=== PATIENT | male | born 2000 | race Hispanic/Latino ===

== ENCOUNTER 2018-03-31 13:39 | Emergency (ER) | payer BC ==
--- OUTSIDE RECORDS SUMMARY | 2018-03-31 13:42 | XMS REPORT ---
:2000 [facility] [address] [place] [address] [address]. [address] [place] [address] Care Team Providers Name Role Phone Unavailable Unavailable Unavailable Payers Payer Name Policy Type Policy Number Effective Date Expiration Date Problems This patient has no known problems. Allergies, Adverse Reactions, Alerts Allergy Allergy Status Severity Reaction(s) Onset Inactive Treating Comments Name Type Date Date Clinician No Known DA Active U 2018-01 Allergies -22 00:00:0 0 Medications This patient has no known medications.
[2018-03-31] MEDS ORDERED: ONDANSETRON 4 MG/2 ML VIAL ONE ×2 (14:10→14:29)
[2018-03-31] MEDS ORDERED: FENTANYL CITR 100 MCG/2 ML ONE (14:10)
[2018-03-31] MEDS ORDERED: MORPHINE 4 MG/ML SYR ONE (14:29)
[2018-03-31] MEDS ORDERED: KETOROLAC 30 MG/ML INJ ONE (15:47)
[2018-03-31] MEDS ORDERED: NA CHLORIDE 0.9% 1,000 ML ONE (15:47)
--- NOTE | 2018-03-31 15:49 | RAD REPORT ---
EXAM DESCRIPTION: Leonard David Left03/31/2018 2:45 pm CLINICAL HISTORY: Left leg pain status post injury FINDINGS: Mildly displaced spiral fracture mid to distal left tibia
--- NOTE | 2018-03-31 15:51 | RAD REPORT ---
EXAM DESCRIPTION: RAD - Foot Left 3 View - 03/31/2018 2:45 pm CLINICAL HISTORY: Left Foot pain FINDINGS: No fracture or dislocation is seen.
--- NOTE | 2018-03-31 16:21 | ER ---
Nurse's Notes [facility] Name: Anthony Guo Age: 17 yrs Sex: Male : 2000 Arrival Date: 03/31/2018 Time: 13:40 Bed 13 Private MD: Erickson Frankel B Diagnosis: Spiral fracture left mid to distal tibia Presentation: 03/31 13:53 Risk Assessment: Do you want to hurt yourself or someone else? Patient reports no tw2 desire to harm self or others. Initial Sepsis Screen: Does the patient meet any 2 criteria? No. Patient's initial sepsis screen is negative. Does the patient have a suspected source of infection? No. Patient's initial sepsis screen is negative. Care prior to arrival: None. 13:54 Presenting complaint: Patient states: was sliding into base while playing softball, iw felt and heard a pop in left ankle. Transition of care: patient was not received from another setting of care. Onset of symptoms was March 31, 2018. 13:54 Method Of Arrival: Wheelchair iw 13:54 Acuity: TOÑO 3 iw Historical: - Allergies: 13:55 NKA; iw - Home Meds: 13:55 None [Active]; iw - PMHx: 13:55 None; iw - PSHx: 13:55 None; iw - Immunization history:: Adult Immunizations. - Social history:: Smoking status: . - Ebola Screening: : Patient denies travel to an Ebola-affected area in the 21 days before illness onset. Screenin:52 Abuse screen: Denies threats or abuse. Nutritional screening: No deficits noted. tw2 Tuberculosis screening: No symptoms or risk factors identified. Fall Risk None identified. Assessment: 14:00 General: Appears in no apparent distress. uncomfortable, Behavior is calm, cooperative, jl7 appropriate for age. Pain: Complains of pain in left geronimo Pain does not radiate. Pain currently is 10 out of 10 on a pain scale. Pain began 30 min ago. Is continuous. Neuro: Level of Consciousness is awake, alert, obeys commands, Oriented to person, place, time, situation. Cardiovascular: Patient's skin is warm and dry. Respiratory: Airway is patent Respiratory effort is even, unlabored, Respiratory pattern is regular, symmetrical. Derm: Skin is pink, warm \T\ dry. Musculoskeletal: Bony deformity noted of left geronimo. 15:00 Reassessment: Patient appears in no apparent distress at this time. Patient and/or jl7 family updated on plan of care and expected duration. Pain level reassessed. Patient is alert, oriented x 3, equal unlabored respirations, skin warm/dry/pink. 16:00 Reassessment: Patient appears in no apparent distress at this time. No changes from jl7 previously documented assessment. Patient and/or family updated on plan of care and expected duration. Pain level reassessed. Patient is alert, oriented x 3, equal unlabored respirations, skin warm/dry/pink. Vital Signs: 13:55 BP 117 / 71; Pulse 82; Resp 16; Temp 97.2(TE); Pulse Ox 100% on R/A; Weight 68.95 kg; iw Height 5 ft. 7 in. (170.18 cm); Pain 10/10; 14:20 BP 107 / 63; Pulse 81; Resp 16 S; Pulse Ox 99% on R/A; Pain 7/10; jl7 14:53 BP 101 / 73; Pulse 85; Resp 16 S; Pulse Ox 100% on R/A; jl7 16:00 BP 108 / 64; Pulse 88; Resp 16 S; Pulse Ox 99% on R/A; jl7 13:55 Body Mass Index 23.81 (68.95 kg, 170.18 cm) iw ED Course: 13:40 Patient arrived in ED. mr 13:41 Erickson Frankel MD is Private Physician. mr 13:52 Arm band placed on. tw2 13:52 Bed in low position. Call light in reach. tw2 13:54 Ellis Weiss PA is PHCP. cp 13:54 Jacobo Zavala MD is Attending Physician. cp 13:55 Triage completed. iw 14:01 Inserted saline lock: 20 gauge in right antecubital area, using aseptic technique. la1 Blood collected. 14:19 Rashida Alonso, NITZA is Primary Nurse. jl7 14:45 XRAY Tib Fib LEFT In Process Unspecified. EDMS 14:45 XRAY Foot LEFT 3 View In Process Unspecified. EDMS 16:03 Crutch training done. Orthoglass splint: Posterior long leg splint applied on left leg. 5 16:20 Semaj Roper MD is Referral Physician. cp 16:44 No provider procedures requiring assistance completed. IV discontinued, intact, jl7 bleeding controlled, No redness/swelling at site. Pressure dressing applied. Administered Medications: 14:02 Drug: fentaNYL (PF) 50 mcg Route: IVP; Site: right antecubital; la1 14:15 Follow up: Response: No adverse reaction; Pain is decreased jl7 14:02 Drug: Zofran 4 mg Route: IVP; Site: right antecubital; la1 14:48 Follow up: Response: No adverse reaction jl7 14:25 Drug: Zofran 4 mg Route: IVP; Site: right antecubital; jl7 14:48 Follow up: Response: No adverse reaction jl7 14:27 Drug: morphine 2 mg Route: IVP; Site: right antecubital; jl7 14:48 Follow up: Response: No adverse reaction; Pain is decreased jl7 15:00 Drug: morphine 2 mg Route: IVP; Site: right antecubital; jl7 15:30 Follow up: Response: No adverse reaction jl7 15:30 Drug: fentaNYL (PF) 50 mcg Route: IVP; Site: right antecubital; jl7 16:00 Follow up: Response: No adverse reaction; Pain is decreased jl7 15:30 Drug: NS 0.9% 1000 ml Route: IV; Rate: 1 bolus; Site: right antecubital; jl7 16:29 Follow up: Response: No adverse reaction; IV Status: Completed infusion jl7 16:28 CANCELLED (Other Intervention Used): morphine 4 mg IVP once jl7 Outcome: 16:21 Discharge ordered by . william 16:44 Discharged to home ambulatory, with crutches, with family. jl7 16:44 Condition: stable 16:44 Discharge instructions given to patient, family, Instructed on discharge instructions, follow up and referral plans. medication usage, crutch walking, Demonstrated understanding of instructions, follow-up care, medications, crutch walking, Prescriptions given X 2. 16:48 Patient left the ED. jl7 Signatures: Dispatcher [employer] LUZ ChavaJenny Emerald Juarez, RN Damir De Jesus RN RN la1 Ellis Weiss PA PA cp Wise, Tara, RN RN Danna Marrero [facility] Rashida Alonso RN RN jl7
--- NOTE | 2018-03-31 16:21 | EDPHYS ---
Physician Documentation [facility] Name: Anthony Guo Age: 17 yrs Sex: Male : 2000 Arrival Date: 03/31/2018 Time: 13:40 Bed 13 Private MD: Erickson Frankel B ED Physician Jacobo Zavala HPI: 03/31 14:10 This 17 yrs old Male presents to ER via Wheelchair with complaints of Ankle cp Injury. 14:10 The patient presents with decreased range of motion, an injury, pain, that is acute. cp The complaints affect the left lower leg. Context: The problem was sustained at a sports field or court, resulted from playing sports, baseball, sliding into base, the patient is not able to bear weight, must have assistance. 14:10 Onset: The symptoms/episode began/occurred just prior to arrival. Associated signs and cp symptoms: Pertinent positives: tingling, Pertinent negatives numbness. Treatment prior to arrival includes: no previous treatment. Historical: - Allergies: 13:55 NKA; iw - Home Meds: 13:55 None [Active]; iw - PMHx: 13:55 None; iw - PSHx: 13:55 None; iw - Immunization history:: Adult Immunizations. - Social history:: Smoking status: . - Ebola Screening: : Patient denies travel to an Ebola-affected area in the 21 days before illness onset. ROS: 14:25 Eyes: Negative for injury, pain, redness, and discharge. cp 14:25 Constitutional: Negative for body aches, chills, fever, poor PO intake. 14:25 Neck: Negative for pain with movement, pain at rest, stiffness. cp 14:25 Cardiovascular: Negative for chest pain. 14:25 Respiratory: Negative for cough, wheezing. 14:25 Abdomen/GI: Negative for abdominal pain. 14:25 Back: Negative for pain at rest, pain with movement. 14:25 MS/extremity: Positive for decreased range of motion, deformity, ecchymosis, pain, paresthesias, swelling, tenderness, of the left lower leg. 14:25 Neuro: Negative for altered mental status, headache, loss of consciousness, syncope. 14:25 All other systems are negative. Exam: 14:33 Constitutional: The patient appears alert, awake, non-toxic, well developed, well cp nourished, in obvious pain, uncomfortable. 14:33 Head/Face: Normocephalic, atraumatic. cp 14:33 Eyes: Periorbital structures: appear normal, Conjunctiva: normal, no exudate, no injection, Lids and lashes: appear normal, bilaterally. 14:33 ENT: External ear(s): are unremarkable, Nose: is normal, Mouth: is normal. 14:33 Neck: ROM/movement: is normal, is supple, without pain, no range of motions limitations, no nuchal rigidity. 14:33 Chest/axilla: Inspection: normal, Palpation: is normal, no crepitus, no tenderness. 14:33 Cardiovascular: Rate: normal, Rhythm: regular, Pulses: Pulses are 2+ in left dorsalis pedis artery. 14:33 Respiratory: the patient does not display signs of respiratory distress, Respirations: normal, no use of accessory muscles, no retractions, no splinting, no tachypnea, labored breathing, is not present, Breath sounds: are clear throughout, no decreased breath sounds, no stridor, no wheezing. 14:33 Abdomen/GI: Inspection: abdomen appears normal, Bowel sounds: active, all quadrants, Palpation: abdomen is soft and non-tender, in all quadrants. 14:33 Back: pain, is absent, ROM is normal. 14:33 Musculoskeletal/extremity: Extremities: grossly normal except: noted in the left lower leg: decreased ROM, deformity, ecchymosis, pain, swelling, tenderness, Perfusion: the extremity is normally perfused throughout, Sensation intact. 14:33 Skin: of lower leg intact. 14:33 Neuro: Orientation: to person, place \T\ time. Mentation: is normal, Cerebellar function: is grossly normal, Motor: moves all fours, strength is normal, Sensation: is normal. Vital Signs: 13:55 BP 117 / 71; Pulse 82; Resp 16; Temp 97.2(TE); Pulse Ox 100% on R/A; Weight 68.95 kg; iw Height 5 ft. 7 in. (170.18 cm); Pain 10/10; 14:20 BP 107 / 63; Pulse 81; Resp 16 S; Pulse Ox 99% on R/A; Pain 7/10; jl7 14:53 BP 101 / 73; Pulse 85; Resp 16 S; Pulse Ox 100% on R/A; jl7 16:00 BP 108 / 64; Pulse 88; Resp 16 S; Pulse Ox 99% on R/A; jl7 13:55 Body Mass Index 23.81 (68.95 kg, 170.18 cm) iw Procedures: 16:15 Splinting: Splint applied to left leg using Orthoglass splint, posterior long leg. cp applied by tech. Examined by me, post splint application: neurovascular intact, Patient tolerated well. 16:15 Crutch training provided to patient and/or family. Return demonstration given. cp MDM: 13:54 Patient medically screened. cp 15:00 Differential diagnosis: dislocation, open fracture, closed fracture, contusion. cp 16:20 Data reviewed: vital signs, nurses notes, radiologic studies, plain films. cp 16:20 Test interpretation: by ED physician or midlevel provider: plain radiologic studies. cp Counseling: I had a detailed discussion with the patient and/or guardian regarding: the historical points, exam findings, and any diagnostic results supporting the discharge/admit diagnosis, radiology results, the need for outpatient follow up, for definitive care, a orthopedic surgeon, to return to the emergency department if symptoms worsen or persist or if there are any questions or concerns that arise at home. Response to treatment: the patient's symptoms have markedly improved after treatment. ED course: VSS. Pain markedly improved. Patient instructed on strict non-weight bearing of left leg and compartment syndrome symptoms. Will discharge to home for continued monitoring. 03/31 13:59 Order name: XRAY Tib Fib LEFT; Complete Time: 15:53 cp 03/31 13:59 Order name: XRAY Foot LEFT 3 View; Complete Time: 15:53 cp 03/31 13:59 Order name: IV; Complete Time: 14:03 cp 03/31 16:18 Order name: Crutches; Complete Time: 16:29 cp Administered Medications: 14:02 Drug: fentaNYL (PF) 50 mcg Route: IVP; Site: right antecubital; la1 14:15 Follow up: Response: No adverse reaction; Pain is decreased jl7 14:02 Drug: Zofran 4 mg Route: IVP; Site: right antecubital; la1 14:48 Follow up: Response: No adverse reaction jl7 14:25 Drug: Zofran 4 mg Route: IVP; Site: right antecubital; jl7 14:48 Follow up: Response: No adverse reaction 14:27 Drug: morphine 2 mg Route: IVP; Site: right antecubital; jl7 14:48 Follow up: Response: No adverse reaction; Pain is decreased 7 15:00 Drug: morphine 2 mg Route: IVP; Site: right antecubital; jl7 15:30 Follow up: Response: No adverse reaction 15:30 Drug: fentaNYL (PF) 50 mcg Route: IVP; Site: right antecubital; jl7 16:00 Follow up: Response: No adverse reaction; Pain is decreased 15:30 Drug: NS 0.9% 1000 ml Route: IV; Rate: 1 bolus; Site: right antecubital; jl7 16:29 Follow up: Response: No adverse reaction; IV Status: Completed infusion 16:28 CANCELLED (Other Intervention Used): morphine 4 mg IVP once 7 Disposition: 03/31/18 16:21 Discharged to Home. Impression: Spiral fracture left mid to distal tibia. - Condition is Stable. - Discharge Instructions: Tibial Fracture, Adult. - Prescriptions for Ibuprofen 800 mg Oral Tablet - take 1 tablet by ORAL route every 8 hours As needed take with food; 30 tablet. Tylenol- Codeine #3 300-30 mg Oral Tablet - take 2 tablets by ORAL route every 6 hours As needed; 20 tablet. - Medication Reconciliation Form, Thank You Letter, Antibiotic Education, Prescription Opioid Use form. - Follow up: Semaj Roper MD; When: 2 - 3 days; Reason: spiral fracture left mid to distal tibia. - Problem is new. - Symptoms have improved. Addendum: 04/01/2018 16:56 Co-signature as Attending Physician, Jacobo Zavala MD. g s Signatures: Dispatcher [employer] EDEmerald Lozano RN RN iw Damir Saleh RN RN la1 Ellis Weiss PA PA cp Wise, Tara, RN RN tw2 Rashida Alonso RN RN jl7 Jacobo Zavala MD MD Corrections: (The following items were deleted from the chart) 03/31 16:28 16:27 morphine 4 mg IVP once ordered. jl7 16:48 16:21 03/31/2018 16:21 Discharged to Home. Impression: Spiral fracture left mid to jl7 distal tibia. Condition is Stable. Forms are Medication Reconciliation Form, Thank You Letter, Antibiotic Education, Prescription Opioid Use. Follow up: Semaj Roper; When: 2 - 3 days; Reason: spiral fracture left mid to distal tibia. Problem is new. Symptoms have improved. cp
== END 2018-03-31 16:48 | disposition home or self-care (01) ==
LOC: ER 13:39
PROC: 2W3MX1Z Immobilization of Left Lower Extremity using Splint (ICD-10-PCS; principal; 2018-03-31)
DX: S82.242A Displaced spiral fracture of shaft of left tibia, initial encounter for closed fracture (principal); Y93.64 Activity, baseball; Y92.320 Baseball field as the place of occurrence of the external cause
CPT/HCPCS: 96361; 96374; 96375; 99284; J2405; J3010; J7030

== ENCOUNTER 2018-10-08 06:24 | Emergency (ER) | payer BC ==
--- OUTSIDE RECORDS SUMMARY | 2018-10-08 06:26 | XMS REPORT ---
:2000 [facility] Address [address] [place] [address] [address]. [address] [place] [address] Care Team Providers Name Role Phone Unavailable [...]
[2018-10-08] MEDS ORDERED: NA CHLORIDE 0.9% 1,000 ML ONE (06:49)
[2018-10-08] MEDS ORDERED: PANTOPRAZOLE 40 MG INJ ONE (06:50)
[2018-10-08 07:06] LABS: Absolute Lymphocytes (CBC) 1.5 K/uL (0.7-4.9); Basophils % 0.3 % (0-1.3); Hematocrit 44.6 % (39.6-49.0); Lymphocytes % 15.7 % (15.3-44.8); MPV 8.9 fL (7.6-11.3); RBC Red Blood Cell Count 4.94 M/uL (4.33-5.43)
[2018-10-08 07:22] LABS: BUN Blood Urea Nitrogen 8 mg/dL (7-18); Bicarbonate 27 mmol/L (21-32); Glucose Level 107 mg/dL (74-106); Potassium 3.6 mmol/L (3.5-5.1); Sodium Level 142 mmol/L (136-145); Troponin (Emerg Dept Use Only) < 0.02 ng/mL (0.0-0.045)
--- NOTE | 2018-10-08 07:41 | RAD REPORT ---
EXAM DESCRIPTION: RAD - Chest Pa And Lat (2 Views) - 10/08/2018 7:05 am CLINICAL HISTORY: check for air under taylor;Chest pain;SOB COMPARISON: None. TECHNIQUE: PA and lateral views of the chest were obtained. FINDINGS: The lungs are clear. Heart size is normal and central vasculature is within normal limit s. No pleural effusion or pneumothorax seen. No acute bony finding noted. No aortic abnormality. No free air under the diaphragm. IMPRESSION: No acute cardiopulmonary process. No free air under the diaphragm.
--- NOTE | 2018-10-08 07:58 | RAD REPORT ---
EXAM DESCRIPTION: CT - Chest For Pe Angio - 10/08/2018 7:47 am CLINICAL HISTORY: Chest pain;Dyspnea COMPARISON: Chest film same date TECHNIQUE: Dynamically enhanced 3 mm thick images of the chest were obtained during administration o f approximately 150mL Isovue 370 IV contrast. Coronal and oblique MIP reconstruction images were gene rated and reviewed. Exam utilizes a protocol to evaluate the pulmonary arterial tree. All CT scans are performed using dose optimization technique as appropriate and may include automated exposure control or mA/KV adjustment according to patient size. FINDINGS: No pulmonary emboli are identified. The aorta as imaged shows no acute or suspicious finding. No pericardial thickening or effusion. No infiltrate or mass in the lung parenchyma. No pleural effusion or pleural thickening. No mediastinal or hilar suspicious masses. No chest wall masses or abnormal axillary lymphadenopathy. There is mild degradation in vascular assessment in the far peripheral branches in each lung base due to motion. IMPRESSION: No pulmonary emboli identified. No other significant or suspicious findings.
--- NOTE | 2018-10-08 08:36 | ER ---
Nurse's Notes [facility] Name: Anthony Guo Age: 18 yrs Sex: Male : 2000 Arrival Date: 10/08/2018 Time: 06:29 Bed 16 Private MD: Diagnosis: Gastro-esophageal reflux disease;Chest pain, unspecified Presentation: 10/08 06:30 Presenting complaint: Patient states: he started feeling ill yesterday and vomited x 1 bb but that went away then this morning he started having difficulty breathing with chest pain since about 0400, pt states pain is constant, 08/21, "feels like something is grabbing me". Transition of care: patient was not received from another setting of care. Onset of symptoms was October 07, 2018. Risk Assessment: Do you want to hurt yourself or someone else? Patient reports no desire to harm self or others. Initial Sepsis Screen: Does the patient meet any 2 criteria? No. Patient's initial sepsis screen is negative. Does the patient have a suspected source of infection? No. Patient's initial sepsis screen is negative. Care prior to arrival: None. 06:30 Method Of Arrival: Ambulatory bb 06:30 Acuity: TOÑO 3 bb Triage Assessment: 08:58 General: Appears in no apparent distress. uncomfortable, Behavior is calm, cooperative, hj appropriate for age. Respiratory: Reports shortness of breath Onset: The symptoms/episode began/occurred the patient has mild shortness of breath. Historical: - Allergies: 06:32 NKA; bb - Home Meds: 06:32 None [Active]; bb - PMHx: 06:32 None; bb - PSHx: 06:32 varicele surgery; bb - Immunization history:: Adult Immunizations up to date. - Social history:: Smoking status: Patient uses tobacco products, denies chronic smoking, but will smoke occasionally, Patient uses alcohol, occasionally. Patient/guardian denies using street drugs. - Ebola Screening: : No symptoms or risks identified at this time. Screenin:37 Abuse screen: Denies threats or abuse. Nutritional screening: No deficits noted. ea Tuberculosis screening: No symptoms or risk factors identified. Fall Risk None identified. Assessment: 06:33 General: Appears uncomfortable, Behavior is calm, cooperative, appropriate for age. ea Pain: Complains of pain in chest Pain does not radiate. Neuro: Level of Consciousness is awake, alert, obeys commands, Oriented to person, place, time, situation. Cardiovascular: Patient's skin is warm and dry. Cardiovascular:. Cardiovascular: Rhythm is sinus rhythm. Respiratory: Airway is patent Respiratory effort is even, unlabored, Respiratory pattern is regular, symmetrical. Respiratory: Breath sounds are clear bilaterally. GI: Abdomen is non-distended, Bowel sounds present X 4 quads. Derm: Skin is pink, warm \\T\\ dry. Musculoskeletal: Circulation, motion, and sensation intact. Vital Signs: 06:32 BP 130 / 92; Pulse 87; Resp 16 S; Temp 98.5(O); Pulse Ox 96% on R/A; Weight 68.04 kg bb (R); Height 5 ft. 7 in. (170.18 cm) (R); Pain 7/10; 08:59 BP 127 / 82; Pulse 85; Resp 18; Pulse Ox 100% on R/A; hj 06:32 Body Mass Index 23.49 (68.04 kg, 170.18 cm) ED Course: 06:29 Patient arrived in ED. bb 06:31 Lita Rivera FNP-C is PHCP. snw 06:31 Allen Castro MD is Attending Physician. snw 06:32 Triage completed. bb 06:32 Arm band placed on Patient placed in an exam room, on a stretcher, on pulse oximetry. bb EKG completed in triage. Results shown to MD. Family accompanied patient. 06:38 Patient has correct armband on for positive identification. Bed in low position. Call ea light in reach. Side rails up X2. 06:55 Patient moved to radiology via wheelchair. jb2 06:59 Nile De León, NITZA is Primary Nurse. hj 07:00 X-ray completed. Patient moved back from radiology. jb2 07:05 Chest Pa And Lat (2 Views) XRAY In Process Unspecified. EDMS 07:48 CT Chest For PE Angio In Process Unspecified. EDMS 08:58 No provider procedures requiring assistance completed. IV discontinued, intact, hj bleeding controlled, No redness/swelling at site. Pressure dressing applied. Administered Medications: 06:58 Drug: NS 0.9% 1000 ml Route: IV; Rate: 1 bolus; Site: left antecubital; ea 08:42 Follow up: IV Status: Completed infusion; IV Intake: 1000ml hj 06:58 Drug: ProTONIX 40 mg Route: IVP; Site: right antecubital; ea 07:00 Follow up: Response: No adverse reaction hj 08:42 Drug: CarafATE 1 grams Route: PO; hj 08:45 Follow up: Response: No adverse reaction hj Intake: 08:42 IV: 1000ml; Total: 1000ml. hj Outcome: 08:30 Discharge ordered by MD. dubois 08:58 Discharged to home ambulatory, with family. hj 08:58 Condition: stable 08:58 Discharge instructions given to patient, family, Instructed on discharge instructions, follow up and referral plans. medication usage, Demonstrated understanding of instructions, follow-up care, medications, Prescriptions given X 1. 09:09 Patient left the ED. Signatures: Dispatcher [employer] EDMS Lita Rivera, [place] CONFIGURATION MANAGEMENT ADVISOR-Kev Caldwell jb2 Rosalva Watts RN RN bb Joaquin, Henry, RN RN hj Antunez, Elena, RN RN ea Corrections: (The following items were deleted from the chart) 07:00 07:00 Patient moved to radiology via wheelchair. jb2 jb2
--- NOTE | 2018-10-08 08:37 | EDPHYS ---
Physician Documentation [facility] Name: Anthony Guo Age: 18 yrs Sex: Male : 2000 Arrival Date: 10/08/2018 Time: 06:29 Bed 16 Private MD: ED Physician Allen Castro HPI: 10/08 07:12 This 18 yrs old Male presents to ER via Ambulatory with complaints of snw Breathing Difficulty, Chest Pain. 07:12 The patient has shortness of breath at rest. Onset: The symptoms/episode began/occurred snw suddenly, at 04:00. Duration: The symptoms are continuous. The patient's shortness of breath has no apparent modifying factors. Associated signs and symptoms: The patient has no apparent associated signs or symptoms. Severity of symptoms: At their worst the symptoms were moderate. The patient has not experienced similar symptoms in the past. The patient has not recently seen a physician. smokes, vomited forcefully x 1 prior to s/s. Historical: - Allergies: 06:32 NKA; bb - Home Meds: 06:32 None [Active]; bb - PMHx: 06:32 None; bb - PSHx: 06:32 varicele surgery; bb - Immunization history:: Adult Immunizations up to date. - Social history:: Smoking status: Patient uses tobacco products, denies chronic smoking, but will smoke occasionally, Patient uses alcohol, occasionally. Patient/guardian denies using street drugs. - Ebola Screening: : No symptoms or risks identified at this time. ROS: 07:02 Constitutional: Negative for fever, chills, and weight loss, Eyes: Negative for injury, snw pain, redness, and discharge, ENT: Negative for injury, pain, and discharge, Neck: Negative for injury, pain, and swelling. 07:02 Back: Negative for injury and pain, : Negative for injury, bleeding, discharge, and swelling, MS/Extremity: Negative for injury and deformity, Skin: Negative for injury, rash, and discoloration, Neuro: Negative for headache, weakness, numbness, tingling, and seizure, Psych: Negative for depression, anxiety, suicide ideation, homicidal ideation, and hallucinations. 07:02 Cardiovascular: Positive for chest pain, of the chest. 07:02 Respiratory: Positive for shortness of breath, at rest. 07:02 Abdomen/GI: Positive for vomiting, x1. Exam: 07:02 Constitutional: This is a well developed, well nourished patient who is awake, alert, snw and in no acute distress. Head/Face: Normocephalic, atraumatic. Eyes: Pupils equal round and reactive to light, extra-ocular motions intact. Lids and lashes normal. Conjunctiva and sclera are non-icteric and not injected. Cornea within normal limits. Periorbital areas with no swelling, redness, or edema. ENT: Nares patent. No nasal discharge, no septal abnormalities noted. Tympanic membranes are normal and external auditory canals are clear. Oropharynx with no redness, swelling, or masses, exudates, or evidence of obstruction, uvula midline. Mucous membranes moist. Neck: Trachea midline, no thyromegaly or masses palpated, and no cervical lymphadenopathy. Supple, full range of motion without nuchal rigidity, or vertebral point tenderness. No Meningismus. Chest/axilla: Normal chest wall appearance and motion. Nontender with no deformity. No lesions are appreciated. Cardiovascular: Regular rate and rhythm with a normal S1 and S2. No gallops, murmurs, or rubs. Normal PMI, no JVD. No pulse deficits. Respiratory: Lungs have equal breath sounds bilaterally, clear to auscultation and percussion. No rales, rhonchi or wheezes noted. No increased work of breathing, no retractions or nasal flaring. Abdomen/GI: Soft, non-tender, with normal bowel sounds. No distension or tympany. No guarding or rebound. No evidence of tenderness throughout. Back: No spinal tenderness. No costovertebral tenderness. Full range of motion. Skin: Warm, dry with normal turgor. Normal color with no rashes, no lesions, and no evidence of cellulitis. MS/ Extremity: Pulses equal, no cyanosis. Neurovascular intact. Full, normal range of motion. Neuro: Awake and alert, GCS 15, oriented to person, place, time, and situation. Cranial nerves II-XII grossly intact. Motor strength 5/5 in all extremities. Sensory grossly intact. Cerebellar exam normal. Normal gait. Psych: Awake, alert, with orientation to person, place and time. Behavior, mood, and affect are within normal limits. Vital Signs: 06:32 BP 130 / 92; Pulse 87; Resp 16 S; Temp 98.5(O); Pulse Ox 96% on R/A; Weight 68.04 kg bb (R); Height 5 ft. 7 in. (170.18 cm) (R); Pain 7/10; 08:59 BP 127 / 82; Pulse 85; Resp 18; Pulse Ox 100% on R/A; hj 06:32 Body Mass Index 23.49 (68.04 kg, 170.18 cm) MDM: 06:31 Patient medically screened. snw 08:36 Data reviewed: vital signs, nurses notes. Data interpreted: Pulse oximetry: on room air snw is 96 %. Interpretation: acceptable. Special discussion: Based on the patient's history, exam, and Dx evaluation, there is no indication for emergent intervention or inpatient Tx. It is understood by the patient/guardian that if the Sx's persist or worsen they need to return immediately for re-evaluation. I have referred the patient to see his PCP for further evaluation of high blood pressure. Based on the history and exam findings, there is no indication for further emergent testing or inpatient evaluation. I discussed with the patient/guardian the need to see the primary care provider for further evaluation of the symptoms. 10/08 06:43 Order name: CBC with Diff; Complete Time: 07:13 snw 10/08 06:43 Order name: Chem 7; Complete Time: 07:30 snw 10/08 06:43 Order name: Chest Pa And Lat (2 Views) XRAY; Complete Time: 07:52 snw 10/08 06:43 Order name: Troponin (emerg Dept Use Only); Complete Time: 07:30 snw 10/08 06:43 Order name: DD; Complete Time: 07:20 snw 10/08 07:21 Order name: CT Chest For PE Angio; Complete Time: 08:06 snw Administered Medications: 06:58 Drug: NS 0.9% 1000 ml Route: IV; Rate: 1 bolus; Site: left antecubital; ea 08:42 Follow up: IV Status: Completed infusion; IV Intake: 1000ml 06:58 Drug: ProTONIX 40 mg Route: IVP; Site: right antecubital; ea 07:00 Follow up: Response: No adverse reaction 08:42 Drug: CarafATE 1 grams Route: PO; hj 08:45 Follow up: Response: No adverse reaction Disposition: 10/09 07:28 Co-signature as Attending Physician, Allen Castro MD. ma2 Disposition: 10/08/18 08:30 Discharged to Home. Impression: Gastro-esophageal reflux disease, Chest pain, unspecified. - Condition is Stable. - Discharge Instructions: Nonspecific Chest Pain, Gastroesophageal Reflux Disease, Adult, Hypertension, Smoking Hazards. - Prescriptions for Protonix 40 mg Oral Tablet - take 1 tablet by ORAL route once daily; 30 tablet. Carafate 1 gram Oral Tablet - take 1 tablet by ORAL route 4 times per day take on an empty stomach, beginning on waking and last dose at bedtime; 100 tablet. - Work release form, Medication Reconciliation Form, Thank You Letter, Antibiotic Education, Prescription Opioid Use form. - Follow up: Emergency Department; When: As needed; Reason: Worsening of condition. Follow up: Private Physician; When: 2 - 3 days; Reason: Recheck today's complaints, Continuance of care, Re-evaluation by your physician. Signatures: Dispatcher [employer] EDMS Lita Rivera, WELL SERVICE PUMP EQUIPMENT OPERATOR-C WELL SERVICE PUMP EQUIPMENT OPERATOR-Csnw Rosalva Watts RN RN Nile Pina RN RN hj Antunez, Elena, RN RN ea Alzahri, Mohammad, MD MD ma2 Corrections: (The following items were deleted from the chart) 10/08 09:09 08:30 10/08/2018 08:30 Discharged to Home. Impression: Gastro-esophageal reflux hj disease; Chest pain, unspecified. Condition is Stable. Forms are Medication Reconciliation Form, Thank You Letter, Antibiotic Education, Prescription Opioid Use. Follow up: Emergency Department; When: As needed; Reason: Worsening of condition. Follow up: Private Physician; When: 2 - 3 days; Reason: Recheck today's complaints, Continuance of care, Re-evaluation by your physician. snw
[2018-10-08] MEDS ORDERED: SUCRALFATE 1 GM TABLET ONE (08:43)
--- NOTE | 2018-10-08 11:21 | EKG ---
Test Date: 2018-10-08 Test Time: 06:31:10 [employer]: KAVITHA MEASUREMENT RESULTS: Intervals: Rate: 86 UT: 154 QRSD: 84 QT: 352 QTc: 421 Lucien: P: 42 UT: 154 QRS: 89 T: 20 INTERPRETIVE STATEMENTS: Normal sinus rhythm Normal ECG Electronically Signed On 10-08-18 11:19:11 CDT by Won Miner
== END 2018-10-08 09:09 | disposition home or self-care (01) ==
LOC: ER 06:24
DX: K21.9 Gastro-esophageal reflux disease without esophagitis (principal); Z72.0 Tobacco use
CPT/HCPCS: 96361; 93005; 85025; 80048; 36415; 85379; 84484; 71275; 71046; 96374; 99284; Q9967; C9113; J7030